=== PATIENT | male | born 1985 | race Caucasian/White ===

== ENCOUNTER 2019-08-12 16:48 | Emergency (ER) | payer MEDICAID, SELFPAY ==
[2019-08-12 16:51] VITALS: BP 180/93; PULSE 74; RESP 18; TEMP 37; O2SAT 98; BMI 39.0
--- NOTE | 2019-08-12 16:54 | HMH.COUGH ---
Cough Clinic HPI - History of Present Illness Complaint:: Exposure to positive case HPI:: Asymptomatic 34-year-old male with recent exposure to COVID-19 positive case at work. Last known exposure this past Thursday. Work informed him he needed to be off work for 2 weeks and quarantine himself. At this time he has no cough, fever, congestion, shortness of breath, body aches or fatigue. Patient does smoke approximately half pack a day. Home Medications: Home Medications Medication Instructions Recorded Confirmed Type No Known Home Medications 08/12/19 08/12/19 History Allergies/Adverse Reactions: Allergies Allergy/AdvReac Type Severity Reaction Status Date / Time cefaclor [CEFACLOR] Allergy Mild Verified 08/12/19 16:49 cephalexin [CEPHALEXIN] Allergy Mild Verified 08/12/19 16:49 codeine [CODEINE] Allergy Mild Verified 08/12/19 16:49 erythromycin base Allergy Mild Verified 08/12/19 16:49 [ERYTHROMYCIN BASE] Penicillins [PENICILLINS] Allergy Mild Verified 08/12/19 16:49 Sulfa (Sulfonamide Allergy Mild Verified 08/12/19 16:49 Antibiotics) [SULFA (SULFONAMIDE ANTIBIOTICS)] Tetracyclines [TETRACYCLINES] Allergy Mild Verified 08/12/19 16:49 Cough Clinic Triage - Symptoms Fever History: No Chills: No Myalgia: No Nasal Drainage: No Sore Throat: No Productive Cough: No Non-productive Cough: No Ear or Sinus Pain: No Joint Pain: No Chest Pain: No Rash: No Shortness of Breath: No Nausea or Vomitting: No Headache: No Abdominal Pain: No Diarrhea: No - Exposure History Foreign Travel: No Direct Contact with COVID-19 Patient: Yes If YES, Who:: toby When:: 08/08/19 Distance/Proximity to Contact:: 6 feet Length of Time in Direct Contact:: 5 minutes - Risk Factors Greater than 60 Years Old: No COPD: No Diabetes: No Heart Disease: No Home Oxygen Use: No Chronic Renal Disease: No Chronic Liver Disease: No Neurologic/Neurodevelopmental/intellectual disability: No Other Chronic Diseases: No Current Smoker: Yes Former Smoker: No Cough Clinic History I have reviewed the patient's past medical history: Yes ROS Obtained: Yes All systems reviewed & no additional complaints Cough Clinic Exam - General General appearance: alert, in no apparent distress - Head Head exam: atraumatic, normocephalic, normal inspection - Eye Eye exam: Present: normal appearance, PERRL, EOMI - Neck Neck exam: Present: normal inspection, full ROM, trachea midline. Absent: meningismus, lymphadenopathy - Respiratory Respiratory exam: Present: normal lung sounds bilaterally. Absent: respiratory distress - Cardiovascular Cardiovascular exam: Present: regular rate, normal rhythm. Absent: JVD - Neurological Exam Neurological exam: Present: alert, oriented X3 Cough Clinic MDM Vital Signs: 08/12/19 16:51 Temperature 98.6 F Temperature Source Oral Pulse Rate [Left Brachial] 74 Respiratory Rate 18 Blood Pressure [Left Arm] 180/93 H Blood Pressure Mean [Left Arm] 122 Blood Pressure Source [Left Arm] Automatic Cuff Blood Pressure Position [Left Arm] Sitting 02 Sat by Pulse Oximetry 98 Oxygen Delivery Method Room Air Medical Decision Narrative: Otherwise well 34-year-old male with exposure to coronavirus positive patient earlier this week. Recommend self-isolation at home and may return to work on 25 August. Provided with note for work today. Counseled on symptoms to watch for and to return to clinic if develops any concerning symptoms such as cough, fever, fatigue, body aches, GI symptoms. Cough Clinic Disposition Clinical Impression: SARS-associated coronavirus exposure Disposition: Home, Self-Care Referrals: Provider,Referral, [Primary Care Provider] -
[2019-08-12 17:01] VITALS: BP 180/93; PULSE 74; RESP 18; TEMP 37; O2SAT 98
== END 2019-08-12 17:01 | disposition home or self-care (01) ==
PROVIDERS: Emergency Provider Internal Medicine Adolescent Medicine
DX: Z20.828 Contact with and (suspected) exposure to other viral communicable diseases (principal); Z88.0 Allergy status to penicillin; Z88.1 Allergy status to other antibiotic agents; Z88.2 Allergy status to sulfonamides; Z88.6 Allergy status to analgesic agent
CPT/HCPCS: 99201; 99212

== ENCOUNTER 2020-10-24 20:38 | Emergency (ER) | payer SELFPAY ==
[2020-10-24 20:40] VITALS: BP 164/85; PULSE 95; RESP 18; TEMP 37; O2SAT 98; BMI 39.0
--- NOTE | 2020-10-24 21:29 | HMH.EDUTC ---
[facility] [place]: Dental [place] Disposition: Home, Self-Care Condition on Discharge: Good Instructions: Tooth Abscess, Clindamycin Additional Instructions: Use Dental balls as advised in the [facility] today Take antibiotics as prescribed Make sure to eat yogurt or take Probiotics that you can get over the counter Return if needed Make sure to follow up with Dentist as scheduled Straight to ER if any life threatening symptoms Prescriptions: Ibuprofen [Ibuprofen 800mg Tablet] 800 mg PO Q8HP PRN #20 tab PRN Reason: Moderate Pain Transmission Status: Pending to [facility] # clindamycin HCL [Cleocin HCl] 300 mg PO Q8H 7 Days #21 cap Transmission Status: Pending to [facility] # Referrals: Provider,Referral, MD [Primary Care Provider] - As needed Time of Disposition: 21:42 Medical Decision Making - Martin Inquiry Pt receiving controlled substance: No Martin was queried for this patient: No Vital Signs: 10/24/20 20:40 Temperature 98.6 F Temperature Source Oral Pulse Rate [Right Brachial] 95 H Respiratory Rate 18 Blood Pressure [Right Arm] 164/85 H Blood Pressure Mean [Right Arm] 111 Blood Pressure Source [Right Arm] Automatic Cuff Blood Pressure Position [Right Arm] Sitting 02 Sat by Pulse Oximetry 98 Oxygen Delivery Method Room Air Orders (Tests/Meds): ED MEDICATIONS Discontinued Medications Generic Name Dose Route Start Last Admin Trade Name Freq PRN Reason Stop Dose Admin Benzocaine/Butamben/Tetracaine HCl 1 gm 10/24/20 21:11 10/24/20 21:12 Tetracaine/Benzocaine/Butamben 56 Gm [place] TP 10/24/20 21:12 1 gm ONCE ONE Administration Lidocaine HCl 15 ml 10/24/20 21:11 10/24/20 21:12 Lidocaine 2% Viscous Mami 15ml Udc PO 10/24/20 21:12 15 ml ONCE ONE Administration Medical Decision Narrative: Due to patient allergies medication was discussed with pharmacy [facility] [facility] [place] - General Stated complaint: dental pain Time Seen by Provider: 10/24/20 21:30 Mode of Arrival: Ambulatory Source of Information: Patient, Spouse Limitations: No Limitations Description of Symptoms (Recalled from Triage Doc. by RN): PATIENT C/O ABSCESS TOOTH TO LEFT SIDE OF MOUTH X 2 DAYS HEENT Symptoms (Recalled from RN notes): Yes Resp Symptoms (Recalled from RN notes): No Skin Symptoms (Recalled from RN notes): No MS Symptoms (Recalled from RN notes): No Functional Status (Recalled from RN notes): WNL - History of Present Illness Provider Complaint: Patient states that he has been having dental problems States that he made appointment with Dentist but it is not until next States that for the last couple of days he has been having swelling in his left jaw area and thinks he may have an abscess - Related Data Previous Rx's Medication Instructions Recorded Ibuprofen [Ibuprofen 800mg 800 mg PO Q8HP PRN #20 tab 10/24/20 Tablet] clindamycin HCL [Cleocin HCl] 300 mg PO Q8H 7 Days #21 cap 10/24/20 Allergies Allergy/AdvReac Type Severity Reaction Status Date / Time cefaclor [CEFACLOR] Allergy Mild Verified 04/24/20 11:41 cephalexin [CEPHALEXIN] Allergy Mild Verified 04/24/20 11:41 codeine [CODEINE] Allergy Mild Verified 04/24/20 11:41 erythromycin base Allergy Mild Verified 04/24/20 11:41 [ERYTHROMYCIN BASE] Penicillins [PENICILLINS] Allergy Mild Verified 04/24/20 11:41 Sulfa (Sulfonamide Allergy Mild Verified 04/24/20 11:41 Antibiotics) [SULFA (SULFONAMIDE ANTIBIOTICS)] Tetracyclines [TETRACYCLINES] Allergy Mild Verified 04/24/20 11:41 - Worker's Comp Is this a Worker's Comp case?: No [facility] History - Hepatitis A Screen Drug use history?: No High risk sexual behaviors?: No History of sexually transmitted infection?: No Currently employed?: No Childcare worker?: No Do you have indoor plumbing?: Yes Do you have electricity?: Yes Attestation statement:: This patient has been screened for He
[2020-10-24 21:43] VITALS: BP 164/85; PULSE 95; RESP 18; TEMP 37; O2SAT 98
== END 2020-10-24 21:45 | disposition home or self-care (01) ==
PROVIDERS: Emergency Provider Nurse Practitioner
DX: K04.7 Periapical abscess without sinus (principal); K02.9 Dental caries, unspecified

== ENCOUNTER 2020-12-09 20:46 | Emergency (ER) | payer SELFPAY ==
[2020-12-09 20:55] VITALS: BP 156/99; PULSE 90; RESP 18; TEMP 37.7; O2SAT 98; BMI 46.5
[2020-12-09 21:04] VITALS: BP 0/0; PULSE 90; RESP 18; TEMP 37.7
--- NOTE | 2020-12-09 21:04 | HMH.EDUTC ---
[facility] [place] Clinical Impression: Viral syndrome Disposition: Home, Self-Care Condition on Discharge: Good Instructions: DI for Viral Syndrome, DI for COVID-19 (Suspected or Confirmed ), Preventing the Spread of Coronavirus Discharge Instructions Additional Instructions: Avoid contact with the offending substance (poison bela). Don't start the oral steroids until tomorrow. Don't put the topical steroids (triamcinolone) on your face or your groin. Follow up with your regular doctor. GO TO THE ER FOR ANY WORSENING SYMPTOMS OR CONCERNS Prescriptions: Ondansetron [Zofran 4mg ODT] 4 mg PO Q8HP PRN #12 tab.rapdis PRN Reason: Nausea Transmission Status: Received by [facility][id number] Benzonatate [Tessalon Perle 100mg Cap] 100 mg PO TIDP PRN #30 cap PRN Reason: Cough Transmission Status: Received by [facility] #[id number] Referrals: Provider,Referral, MD [Primary Care Provider] - Time of Disposition: 21:09 Medical Decision Making - Medical Records Medical records reviewed: No: I reviewed the patient's medical records. - Martin Inquiry Pt receiving controlled substance: No Vital Signs: 12/09/20 20:55 12/09/20 21:04 Temperature 99.9 F H 99.9 F H Temperature Source Temporal Artery Scan Temporal Artery Scan Pulse Rate 90 Pulse Rate [Left] 90 Respiratory Rate 18 18 Blood Pressure 0/0 L Blood Pressure [Right Arm] 156/99 H Blood Pressure Mean [Right Arm] 118 02 Sat by Pulse Oximetry 98 Orders (Tests/Meds): ORDERS Category Date Time Status Covid-19 Nasal PCR ([facility]) Routine Lab 12/09/20 21:04 [place] [facility] [place] - General Stated complaint: covid test,fever Cough Time Seen by Provider: 12/09/20 21:04 Mode of Arrival: Ambulatory Source of Information: Patient Limitations: No Limitations Description of Symptoms (Recalled from Triage Doc. by RN): PT STATES HE IS FEELING WEAK, CHILLING AND HAS A ASCENCIO. PT HAS BEEN EXPOSED TO COVID POSITIVE PTS AT WORK. HEENT Symptoms (Recalled from RN notes): Yes (ASCENCIO) Resp Symptoms (Recalled from RN notes): No Skin Symptoms (Recalled from RN notes): No MS Symptoms (Recalled from RN notes): No Functional Status (Recalled from RN notes): WEAKNESS AND CHILLS - History of Present Illness Provider Complaint: He states that for the past 2 days he has been having body aches, cough, chilling and fever. He has not been vaccinated against covid-19. He denies any shortness of breath. - Related Data Previous Rx's Medication Instructions Recorded Ibuprofen [Ibuprofen 800mg 800 mg PO Q8HP PRN #20 tab 10/24/20 Tablet] clindamycin HCL [Cleocin HCl] 300 mg PO Q8H 7 Days #21 cap 10/24/20 Benzonatate [Tessalon Perle 100mg 100 mg PO TIDP PRN #30 cap 12/09/20 Cap] Ondansetron [Zofran 4mg ODT] 4 mg PO Q8HP PRN #12 tab.rapdis 12/09/20 Allergies Allergy/AdvReac Type Severity Reaction Status Date / Time cefaclor [CEFACLOR] Allergy Mild Verified 04/24/20 11:41 cephalexin [CEPHALEXIN] Allergy Mild Verified 04/24/20 11:41 codeine [CODEINE] Allergy Mild Verified 04/24/20 11:41 erythromycin base Allergy Mild Verified 04/24/20 11:41 [ERYTHROMYCIN BASE] Penicillins [PENICILLINS] Allergy Mild Verified 04/24/20 11:41 Sulfa (Sulfonamide Allergy Mild Verified 04/24/20 11:41 Antibiotics) [SULFA (SULFONAMIDE ANTIBIOTICS)] Tetracyclines [TETRACYCLINES] Allergy Mild Verified 04/24/20 11:41 - Worker's Comp Is this a Worker's Comp case?: No [facility] History - Hepatitis A Screen Drug use history?: No High risk sexual behaviors?: No History of sexually transmitted infection?: No Currently employed?: No Childcare worker?: No Do you have indoor plumbing?: Yes Do you have electricity?: Yes Attestation statement:: This patient has been screened for Hepatitis A risk factors. I have reviewed the patient's past medical history: Yes - Social History Alcohol Intake: never Occupational Status: other ROS Obtained:
--- NOTE | 2020-12-10 14:46 | PC.NURSE ---
PT NOTIFIED OF POSITIVE COVID TEST RESULT
== END 2020-12-09 21:13 | disposition home or self-care (01) ==
PROVIDERS: Emergency Provider Nurse Practitioner Family
DX: U07.1 COVID-19 (principal)
CPT/HCPCS: 99202; G0463; U0003

== ENCOUNTER 2022-08-23 16:51 | Emergency (ER) | payer OTHER, SELFPAY ==
[2022-08-23 16:53] VITALS: BP 141/77; PULSE 95; RESP 18; TEMP 36.8; O2SAT 97; BMI 43.2
--- NOTE | 2022-08-23 16:59 | PC.NURSE ---
covid swab to lab
--- NOTE | 2022-08-23 17:04 | XR_ITS ---
PROCEDURE INFORMATION: Exam: XR Chest Exam date and time: 08/23/2022 5:02 PM Age: 37 years old Clinical indication: Cough and dyspnea; Additional info: Cough and SOA TECHNIQUE: Imaging protocol: Radiologic exam of the chest. Views: 2 views. COMPARISON: CR [id number] 12/27/2015 1:40 AM FINDINGS: Lungs: Slightly coarsened infrahilar interstitial markings and minimal peribronchial thickening. No focal consolidation. Pulmonary vessels do not appear congested. Lung volumes within normal limits. Possible tiny calcified left hilar lymph nodes versus dense vascular shadows. Pleural spaces: Unremarkable. No significant pleural effusion. No pneumothorax. Heart/Mediastinum: The cardiac silhouette is normal. A small pericardial fat pad noted at the left cardiophrenic angle. Bones/joints: There is no evidence of acute fracture. IMPRESSION: 1. Question minimal bronchitis. No focal consolidation. 2. Additional nonemergency and chronic findings as above.
[2022-08-23 17:09] LABS: Coronavirus 19, PCR Not Detected (NotDetected); Influenza A, PCR Not Detected (NotDetected); Influenza B, PCR Not Detected (NotDetected)
--- NOTE | 2022-08-23 17:37 | HMH.EDGENADL ---
Discharge Plan Disposition Patient Disposition: Home, Self-Care Condition: Good Prescriptions Prescriptions: New tfvaxxivvdhrxzf-qycbsmuqg-SC [Bromfed DM] 2-30-10 mg/5 mL syrup 5 ml PO Q6H PRN (Reason: cold symptoms) Qty: 118 0RF albuterol sulfate 90 mcg/actuation HFA aerosol inhaler 2 inh inhalation Q4H PRN (Reason: shortness of breath or wheezing) Qty: 8.5 0RF No Action clindamycin HCl 300 MG capsule 300 mg PO Q8H 7 Days Qty: 21 0RF ibuprofen 800 MG tablet 800 mg PO Q8HP PRN (Reason: Moderate Pain) Qty: 20 0RF ondansetron 4 MG tablet,disintegrating 4 mg PO Q8HP PRN (Reason: Nausea) Qty: 12 0RF benzonatate 100 MG capsule 100 mg PO TIDP PRN (Reason: Cough) Qty: 30 0RF Referrals Follow up/Referrals: Provider,Referral, MD [Primary Care Provider] - See instructions Activity Restrictions/Add. Instructions Additional Instructions/Restrictions: At this time was felt you are safe to be discharged home. If new or worsening symptoms please do not hesitate to return the emergency department. Please take your medications as prescribed. Clinical Impressions Clinical Impression: Bronchitis Discharge ED Provider: Harvinder Mclean General Adult HPI General Chief complaint: Weakness Stated complaint: SOA, Weakness Time Seen by Provider: 08/23/22 17:30 Mode of Arrival: Ambulatory Source of Information: Patient Limitations: No Limitations Description of Symptoms (Recalled from ER Triage Doc. by RN): c/o soa, cough and weakness for 3 days, states that his soa is all the time. History of Present Illness HPI narrative: Patient is a 37-year-old male with past medical history of childhood asthma not on any current controlled medications who presents emergency department for evaluation of cough. Onset was acute, over the last 4 days. No fevers at home. Adequate p.o. intake and urine output. Due to persistent symptoms he presents here for continued evaluation. No other acute complaints at this time. Related Data Previous Rx's Medication Instructions Recorded clindamycin HCl 300 mg capsule 300 mg PO Q8H 7 days #21 caps 10/24/20 ibuprofen 800 mg tablet 800 mg PO Q8HP PRN Moderate Pain 10/24/20 #20 tabs benzonatate 100 mg capsule 100 mg PO TIDP PRN Cough #30 caps 12/09/20 ondansetron 4 mg disintegrating 4 mg PO Q8HP PRN Nausea ##12 12/09/20 tablet albuterol sulfate 90 mcg/actuation 2 inh inhalation Q4H PRN shortness 08/23/22 aerosol inhaler of breath or wheezing #8.5 grams zcyzzozmudcfpny-cgwcgfmplqvxhqr-DS 5 ml PO Q6H PRN cold symptoms #118 08/23/22 2 mg-30 mg-10 mg/5 mL oral syrup mL (Bromfed DM) Allergies Allergy/AdvReac Type Severity Reaction Status Date / Time cefaclor [CEFACLOR] Allergy Mild Verified 04/24/20 11:41 cephalexin [CEPHALEXIN] Allergy Mild Verified 04/24/20 11:41 codeine [CODEINE] Allergy Mild Verified 04/24/20 11:41 erythromycin base Allergy Mild Verified 04/24/20 11:41 [ERYTHROMYCIN BASE] Penicillins [PENICILLINS] Allergy Mild Verified 04/24/20 11:41 Sulfa (Sulfonamide Allergy Mild Verified 04/24/20 11:41 Antibiotics) [SULFA (SULFONAMIDE ANTIBIOTICS)] Tetracyclines [TETRACYCLINES] Allergy Mild Verified 04/24/20 11:41 PFS PFS Disclaimer: The information contained in this section may have been updated after the patient was seen, as this information can be updated by other users. Social History Smoking Status: Current every day smoker alcohol intake: never current occupational status: other Travel in the last 8 weeks: None ROS Obtained: Yes Systems reviewed as appropriate & no additional complaints except as documented Physical Exam General General appearance: alert, in no apparent distress and other (Persistent coughing at bedside) Head Head exam: atraumatic and normocephalic Eye Eye exam: Present PERRL and EOMI ENT ENT exam: Present mucous membranes moist Neck Neck exam: Present normal inspection Chest Ches
[2022-08-23 18:00] VITALS: PULSE 86; O2SAT 97
[2022-08-23 18:01] VITALS: BP 150/70; PULSE 94; O2SAT 96
[2022-08-23 18:04] VITALS: PULSE 83
[2022-08-23 18:05] VITALS: PULSE 84
[2022-08-23 18:37] VITALS: BP 151/78; PULSE 80; RESP 18; TEMP 36.8; O2SAT 97
== END 2022-08-23 18:38 | disposition home or self-care (01) ==
PROVIDERS: Emergency Provider Emergency Medicine
DX: J40 Bronchitis, not specified as acute or chronic (principal); F17.200 Nicotine dependence, unspecified, uncomplicated
CPT/HCPCS: 71046; 99283; 99284; C9803; U0003; U0005

== ENCOUNTER → 2022-10-06 23:12 | Outpatient (CLI) | payer OTHER, SELFPAY ==
[2022-10-06 18:39] LABS: Basophils # 0.1 K/mm3 (0-0.2); Basophils % 0.5 % (0.1-2.0); Eosinophils # 0.3 K/mm3 (0.0-0.4); Eosinophils % 2.4 % (0.1-12.0); Hematocrit 46.1 % (42.0-52.0); Hemoglobin 14.8 g/dL (14.1-18.0); Lymphocytes % 28.9 % (10-50); Mean Corpuscular HGB Conc 32.1 g/dL (31.8-35.4); Mean Corpuscular Volume 90.4 fl (80-94); Mean Platelet Volume 10.7 fl (7.4-10.4); Monocytes # 0.7 K/mm3 (0.1-1.0); Monocytes % 6.6 % (1.7-9.3); Neutrophils # 6.3 K/mm3 (1.8-7.8); Neutrophils % 61.6 % (37.0-80.0); Platelet Count 286 K/mm3 (142-424); Red Cell Distribution Width 13.3 % (11.5-17.5); White Blood Count 10.2 K/mm3 (4.8-10.8)
[2022-10-06 19:30] LABS: Alanine Aminotransferase 31 U/L (12-78); Albumin/Globulin Ratio 1.3 (1.1-1.8); Alkaline Phosphatase 87 U/L (38-126); Aspartate Amino Transferase 35 U/L (17-59); Bilirubin,Total 0.3 mg/dl (0.2-1.3); Blood Urea Nitrogen 17 mg/dl (9-20); Calcium 8.9 mg/dl (8.4-10.2); Carbon Dioxide 27 mmol/L (22.0-30.0); Chloride 104 mmol/L (98-107); Chol/HDL Ratio 4.2 (1-3.5); Cholesterol 131 mg/dl (140-200); Estimated Glomerular Filt Rate 94 ml/min (>60); GFR (African American) 114 ML/MIN (>60); Glucose 98 mg/dl (74-100); HDL Cholesterol 31 mg/dl (40-60); Sodium 142 mmol/L (136-145); Triglycerides 167 mg/dl (30-150); VLDL Cholesterol 33 mg/dL (0-40)
[2022-10-06 19:42] LABS: Direct LDL Cholesterol 79.27 mg/dL (100-129)
[2022-10-06 19:46] LABS: 25-OH Vitamin D, Total 27.8 ng/mL (30-100); Free T4 (Free Thyroxine) 1.02 ng/dl (0.78-2.19)
[2022-10-06 19:59] LABS: Thyroid Stimulating Hormone 3.31 uIU/mL (0.465-4.68)
== END ==
LOC: LAB.DROPOF 23:14
PROVIDERS: PCP Emergency Medicine; Visit Provider Emergency Medicine
DX: I10 Essential (primary) hypertension (principal); E55.9 Vitamin D deficiency, unspecified; B34.9 Viral infection, unspecified; Z79.899 Other long term (current) drug therapy
CPT/HCPCS: 80053; 80061; 82306; 84439; 84443; 85025

== ENCOUNTER 2022-12-09 22:25 | Emergency (ER) | payer OTHER, SELFPAY ==
[2022-12-09 22:26] VITALS: BP 124/94; PULSE 116; RESP 18; TEMP 36.8; O2SAT 94; BMI 43.2
[2022-12-09 22:42] VITALS: BP 124/94; PULSE 116; RESP 18; TEMP 36.8; O2SAT 94
--- NOTE | 2022-12-09 23:28 | HMH.EDGENADL ---
Discharge Plan Disposition Patient Disposition: Home, Self-Care Prescriptions Prescriptions: New Preparation H 0.25-14-74.9 % ointment 1 applic MS TID PRN (Reason: hemorrhoids) Qty: 57 0RF polyethylene glycol 3350 17 gram/dose powder 8.5 g PO DAILY 28 Days Qty: 850 0RF senna 8.6 mg capsule 8.6 mg PO DAILY PRN (Reason: constipation) Qty: 30 0RF Rx Instructions: per bowel regimen No Action lisinopril 10 mg tablet 10 mg PO DAILY Qty: 30 0RF cholecalciferol (vitamin D3) 1,250 mcg (50,000 unit) capsule 1,250 mcg PO WEEKLY Qty: 5 0RF tramadol 50 mg tablet 50 mg PO BID Qty: 10 0RF phentermine [Adipex-P] 37.5 mg tablet 37.5 mg PO DAILY Qty: 30 0RF Rx Instructions: must administer 30 minutes before or 1-2 hours after breakfast metformin 500 mg tablet 500 mg PO DAILY Qty: 30 2RF lidocaine 5 % ointment 1 applic topical DAILY Qty: 30 0RF Referrals Follow up/Referrals: Christos Zavala MD [Primary Care Provider] - See instructions Activity Restrictions/Add. Instructions Additional Instructions/Restrictions: Apply Preparation H 3 times daily as prescribed. Bowel regimen as described on paper. Call your family doctor to establish care for this visit to the emergency department and schedule follow-up within 48 hours to ensure improvement. If you have any worsening of your condition or any other concerning signs or symptoms, return to the emergency department or your primary care doctor for further evaluation. Clinical Impressions Clinical Impression: External hemorrhoid, Acute anal fissure Stand Alone Forms Stand Alone Forms: Work/School Release Discharge ED Provider: Harvinder Mclean General Adult HPI General Chief complaint: PAIN Stated complaint: pain in rectum Time Seen by Provider: 12/09/22 22:48 Mode of Arrival: Ambulatory Source of Information: Patient Limitations: No Limitations Description of Symptoms (Recalled from ER Triage Doc. by RN): pt reports being seen by family md for possible hemorrhoids today and has a appointment to see proctology next week, pt reports having a bowel movement about 1 hour ago and having increase in pain, denies bleeding History of Present Illness HPI narrative: Is a 37-year-old male with history of chronic constipation presenting with rectal pain. Patient states that he was seen by his family doctor for hemorrhoids today, 12/09. Was previously seen by surgery, but was told there is nothing surgical in nature of his condition, states that he has no hemorrhoids he knows of. Patient states that he has been having significant rectal pain that has been going on for a few days, has follow-up with rectal surgeon in 1 week, but pain is severe that he came to the emergency department. Sitting, bowel movements make it worse. Patient states that he is having bowel movements daily, but needs to strain in order to have bowel movements. Denies fevers or chills, nausea or vomiting, abdominal pain, or any other concerns. Has been trying vinegar/sitz baths for pain control, as well as topical lidocaine. Both of these burn, so patient has been trying to avoid them. Is not on a bowel regimen. Related Data Previous Rx's Medication Instructions Recorded lisinopril 10 mg tablet 10 mg PO DAILY #30 tabs 10/06/22 cholecalciferol (vitamin D3) 1,250 1,250 mcg PO WEEKLY #5 caps 10/07/22 mcg (50,000 unit) capsule metformin 500 mg tablet 500 mg PO DAILY #30 tabs 11/12/22 phentermine 37.5 mg tablet 37.5 mg PO DAILY #30 tabs 11/12/22 (Adipex-P) tramadol 50 mg tablet 50 mg PO BID pain #10 tabs 12/04/22 lidocaine 5 % topical ointment 1 applic topical DAILY #30 grams 12/09/22 phenylephrine 0.25 %-mineral oil 1 applic MS TID PRN hemorrhoids 12/09/22 14 %-petrolatm 74.9 % rectal #57 grams ointment (Preparation H) polyethylene glycol 3350 17 8.5 g PO DAILY 4 weeks #850 grams 12/09/22 gram/dose oral powder sennosides 8.6 mg capsule (senna) 8.6 mg PO D
[2022-12-09 23:41] VITALS: BP 119/78; PULSE 98; RESP 18; TEMP 36.8; O2SAT 94
== END 2022-12-09 23:44 | disposition home or self-care (01) ==
PROVIDERS: Emergency Provider Emergency Medicine; PCP Emergency Medicine
DX: K64.9 Unspecified hemorrhoids (principal); K60.2 Anal fissure, unspecified; F17.200 Nicotine dependence, unspecified, uncomplicated
CPT/HCPCS: 99283; 99284

== ENCOUNTER → 2023-03-17 09:10 | Outpatient (CLI) | payer OTHER, SELFPAY ==
[2023-03-17 18:34] LABS: Coronavirus 19, PCR Not Detected (NotDetected); Influenza A, PCR Not Detected (NotDetected); Influenza B, PCR Not Detected (NotDetected)
== END ==
LOC: LAB.DROPOF 03-18 09:11
PROVIDERS: PCP Internal Medicine; Visit Provider Internal Medicine
DX: R53.83 Other fatigue (principal); R53.1 Weakness; R42 Dizziness and giddiness; R05.8 Other specified cough
CPT/HCPCS: 87636